=== PATIENT | male | born 1990 | race African-American/Black ===

== ENCOUNTER 2024-09-13 11:14 | Outpatient (CLI) | payer OTHER, SELFPAY ==
--- NOTE | ~2024-09-13 | MR_ITS ---
EXAMINATION: MR brain/brain stem wo con DATE: 09/13/2024 11:53 INDICATION: Concentration deficit. Headache. Right hemiparesis. TECHNIQUE: Magnetic resonance imaging (MRI) of the brain and brainstem was performed without intraven ous contrast. COMPARISON: None. FINDINGS: There is no intracranial hemorrhage, acute infarction, or abnormal intracranial mass lesion . The ventricles are normal in size. There is a mucous retention cyst in left maxillary sinus. The ma stoid air cells are normal. The orbits are normal. IMPRESSION: 1. Normal brain. Reviewed, dictated and finalized at location A. [employer] IMPRESSION: 1. Normal brain.
== END 2024-09-13 11:15 | disposition home or self-care (01) ==
LOC: GOSHIMG 11:15
PROVIDERS: PCP Family Medicine; Visit Provider Family Medicine
DX: R41.840 Attention and concentration deficit (principal); R51.9 Headache, unspecified; R53.1 Weakness
CPT/HCPCS: 70551